=== PATIENT | female | born 1985 | race Caucasian/White ===

== ENCOUNTER 2025-03-27 14:47 | Inpatient (IN) | payer OTHER, SELFPAY ==
[2025-03-27] VITALS (9 sets, daily range): BP systolic 138–161; BP diastolic 92–100; PULSE 96–128; RESP 13–18; TEMP 36.7–38; O2SAT 95–98; BMI 22.0
--- NOTE | ~2025-03-27 | CT_ITS ---
CLINICAL HISTORY: n v d, ETOH, epigastric LUQ pain TTP CT abdomen and pelvis with contrast Comparison: None Findings: Minimal bilateral basilar dependent atelectasis. No consolidation or pleural effusion. Gallbladder is within normal limits. No biliary ductal dilatation. The liver is enlarged and demonstrates low parenchymal attenuation consistent with hepatomegaly. 8 mm hypodense lesion in the liver anteriorly possibly cyst but too small to be fully characterized. The spleen, pancreas, adrenal glands and kidneys are unremarkable. No ureteral stones no hydronephrosis. No bowel obstruction, pneumoperitoneum, or pneumatosis. Circumferential wall thickening of the cecum and part of the ascending colon. No free fluid. Normal appendix. Uterus deviated to the left with an IUD in the uterus. Adnexal regions unremarkable. Urinary bladder appears unremarkable. No aneurysm of the abdominal aorta. Small fat containing umbilical hernia. No acute fracture. IMPRESSION: 1. Circumferential wall thickening of cecum and part of ascending colon suggestive of colitis. This could be inflammatory or infectious in etiology. 2. Hepatomegaly and hepatic steatosis 3. Additional nonacute findings as described. This document has been electronically signed by: Marlene Mckeon MD on 03/27/2025 18:23:43
--- NOTE | 2025-03-27 14:48 | ECG_ITS ---
Test Reason : PALP Blood Pressure : */* mmHG Vent. Rate : 119 BPM Atrial Rate : 119 BPM P-R Int : 112 ms QRS Dur : 76 ms QT Int : 434 ms P-R-T Axes : * 70 76 degrees QTcB Int : 610 ms Sinus tachycardia Nonspecific ST and T wave abnormality Prolonged QT Abnormal ECG No previous ECGs available Referred By: Generic ED Physician Electronically Signed By: William Taylor
--- NOTE | 2025-03-27 14:54 | ED.GENADULT ---
HPI - General Adult General Chief complaint: Arrhythmia/Palpitations Stated complaint: chest palpitations Time Seen by Provider: 03/27/25 15:50 Source: patient Mode of arrival: ambulatory Limitations: no limitations History of Present Illness ED Provider: Lyn Mcconnell NP HPI narrative: Patient is a 40-year-old female presents emergency department for evaluation. She reports of the past 2 days she has been experiencing palpitations, generalized chest discomfort/pain, generalized weakness, intermittent dizziness, bilateral lower extremity pain described as cramping, diffuse lower back pain, decreased urinary output with odorous urine no hematuria or dysuria, epigastric/left upper quadrant abdominal pain, vomiting 5-6 episodes today of nonbloody bilious emesis multiple episodes of diarrhea described as loose watery stools. Admits to alcohol use disorder, typically consuming about 6-10 nips daily, states she has only had for nips today due to her symptoms. Denies known history of pancreatitis. Admits to symptoms of alcohol withdrawal but denies withdrawal seizure, states she has recently been trying to cut back on the amount of alcohol that she is consuming. States in September of 2024 she was seen at a [facility] diagnosed with colitis she had low potassium at that time, states she has been taking oral supplementation ?when I remember? not been taking it recently. Denies fevers, chills, known sick contacts, headache, vision changes, neck pain, neck stiffness, numbness or tingling of the extremities Related Data Allergies Allergy/AdvReac Type Severity Reaction Status Date / Time latex Allergy Rash Verified 03/27/25 14:54 Review of Systems Review of Systems: Yes all other systems are reviewed and are negative [facility] Past Medical History Attestation statement: The following information was validated with the patient. Source: old records reviewed Medical History (Updated 03/28/25 @ 03:46 by Amilcar Norton) Alcohol use disorder Colitis Social History Social History Alcohol intake: current Alcohol intake frequency: 0-2 drinks per day Alcohol type: hard liquor Smoked in Last 30 Days: Yes Use of substances other than those prescribed or required for medical reasons: No Advance Directives: No Advance Directives Information Provided: No Patient : No Physical Exam ED Vital Signs: Vital Signs - 24 hr 03/27/25 14:52 03/27/25 16:40 03/27/25 17:11 Temperature 98.0 F Pulse Rate 128 H 96 96 Respiratory Rate 16 18 18 Blood Pressure 138/93 H 145/99 H 149/100 H Pulse Oximetry 96 98 95 Oxygen Delivery Method Room Air Room Air Room Air 03/27/25 17:27 03/27/25 18:52 03/27/25 20:00 Temperature 100.4 F 99.6 F Pulse Rate 99 96 103 H Respiratory Rate 16 16 18 Blood Pressure 145/92 H 158/99 H 161/99 H Pulse Oximetry 95 98 97 Oxygen Delivery Method Room Air Room Air Room Air BMI result Body Mass Index 22.0 Appearance: Alert.?Oriented to person, place and time. No acute distress.?Normal affect. Eyes: Pupils equal, round and reactive to light.? ENT: Pharynx normal.?? Neck: Normal inspection.? Neck supple.?? CVS: Heart sounds normal. Tachycardic? Pulses normal.?? Respiratory: No respiratory distress.? Lung sounds clear to auscultation bilaterally?? Abdomen: Soft with epigastric and left upper quadrant tenderness upon palpation. No rigidity or guarding Normoactive bowel sounds. No pulsatile mass.?? Skin: Skin warm and dry.? Normal skin color.? Facial flushing Extremities: No lower extremity edema.? Neuro: Moves all extremities spontaneously. Sensation intact bilaterally. CN II-XII intact. No focal neuro deficits. Ambulates with normal steady gait. Course Course Course Narrative: 03/27/25 1455 BRENDAN Jack This is a Rapid Medical Examination (RME) performed by Adán Houston PA-C in triage. Full HPI, ROS, assessment and treatment plan per primary provider in the Main ED. Hx: 40 yo F here for eval of palpitations/ chest pain x2 days. assoc generalized weakness/ dizziness, b/l LE pain and low back pain. no cardiac hx. PE/vitals: well appearing Plan: labs, trop, ekg - will defer imaging to primary provider Reevaluation(s) Reevaluation #1: Patient signed out to Rose CARDONA, pending lipase, ethyl alcohol level, urinalysis, CT of the abdomen and pelvis. Anticipating admission for electrolyte derangement suspect at this time likely pancreatitis. Time: 17:56 Medications Administered Generic Name Dose Route Start Last Admin Trade Name Freq PRN Reason Stop Dose Admin Ceftriaxone Sodium 1 gm 03/28/25 01:00 03/28/25 02:08 Ceftriaxone Sodium 1 Gm Vial IVPUSH 1 gm Q24H LORA Administration Lactated Ringer's 1,000 mls @ 100 mls/hr 03/28/25 01:00 03/28/25 02:08 Lr IVCONT 03/28/25 10:59 100 mls/hr .Q10H LORA Administration Metronidazole 500 mg in 100 mls @ 100 mls/hr 03/28/25 01:00 03/28/25 03:12 Flagyl IV Infused Q8H LORA Infusion Discontinued Medications Generic Name Dose Route Start Last Admin Trade Name Freq PRN Reason Stop Dose Admin Potassium Chloride 10 meq in 100 mls @ 100 mls/hr 03/27/25 16:00 03/27/25 19:44 Potassium Chloride/H20 IV 03/27/25 19:59 10 mls/hr Q1H LORA Administration Magnesium Sulfate 2 gm in 50 mls @ 150 mls/hr 03/27/25 15:50 03/27/25 17:11 Magnesium Sulfate/H2o IV 03/27/25 16:09 Infused ONCE ONE Infusion Sodium Chloride 1,000 mls @ 999 mls/hr 03/27/25 16:00 03/27/25 18:29 Ns IV 03/27/25 17:00 Infused .Q1H1M LORA Infusion Iohexol 100 ml 03/27/25 17:18 03/27/25 17:19 Iohexol 350 Mg/Ml 100 Ml Infus..Btl IV 03/27/25 17:19 85 ml ONCE ONE Administration Metoclopramide HCl 10 mg 03/27/25 18:02 03/27/25 20:45 Metoclopramide Hcl 10 Mg/2 Ml Vial IVPUSH 03/27/25 18:03 Not Given ONCE ONE Phenobarbital Sodium 237 mg 03/27/25 20:45 03/27/25 20:50 Phenobarbital Sodium 130 Mg/Ml Im Once IM 03/27/25 20:46 237 mg ONCE ONE Administration Phenobarbital Sodium 178 mg 03/28/25 00:00 03/28/25 03:07 Phenobarbital Sodium 130 Mg/Ml Vial Im Q3hx2 IM 03/28/25 03:01 178 mg Q3H LORA Administration Potassium Chloride 40 meq 03/27/25 15:50 03/27/25 16:14 Potassium Chloride Packet 20 Meq Packet PO 03/27/25 15:51 40 meq ONCE ONE Administration Medical Decision Making Medical Decision Making [facility] Narrative: I assumed care patient at 15:52. Received call from lab regarding critical electrolyte abnormalities potassium of 2.4 and magnesium 0.9. Reviewed EKG reveals a sinus tachycardia ventricular rate of 119, QT/QTC prolongation 434/610 MS, slight ST-depression V3-V6. Patient is a 40-year-old female with reported past medical history of alcohol use disorder presenting for evaluation of multitude of symptoms as per HPI including palpitations weakness myalgias genitourinary symptoms as well as abdominal pain with nausea vomiting and diarrhea. Patient physical examination concerning for pancreatitis, gastroenteritis, suspect that her electrolyte derangements or secondary to gastrointestinal loss. CBC reveals mild leukocytosis of 11,300 with left shift, macrocytic anemia that does not meet transfusion criteria, no thrombocytopenia. No FELIPE. Elevated LFTs with T bili 1.9, ALC 2 5, ALT 41, lipase is pending. HCG is negative. Urinalysis is pending. She is currently pending CT of the abdomen and pelvis for further evaluation, will treat accordingly with a 1 L normal saline IV fluid, reglan IV for nausea, potassium chloride 10 mEq IV x4 for total of 40 mEq IV, potassium chloride 40 mEq p.o., magnesium sulfate 2 g IV. Differential Diagnosis Differential Diagnoses: The differential diagnosis associated with the presentation includes (See narrative above) Admission/Observation Consideration of admission/observation: Escalation of care including admission/observation considered Lab Data [facility] Lab Attestation statement: I reviewed the patient's lab results. (See narrative above and course narrative for further detail) 03/27/25 15:06 03/28/25 01:56 Labs: Lab Results 03/27/25 03/27/25 Range/Units 15:06 17:39 WBC 11.3 H (4.8-10.8) X10*3/uL RBC 2.99 L (4.20-5.50) X10*6/uL Hgb 11.9 L (12.0-16.0) g/dl Hct 32.6 L (37.0-47.0) % MCV 109.0 H (80.0-98.0) fL MCH 39.8 H (27.0-33.0) pg MCHC 36.5 H (31.0-35.0) g/dl RDW 16.1 H (11.0-16.0) % Plt Count 311 (160-400) X10*3/uL MPV 9.0 L (9.4-12.3) fL Immature Gran % (Auto) 0.5 H (0.0-0.4) % Neut % (Auto) 78.9 H (45-73) % Lymph % (Auto) 14.7 L (20-40) % [place] % (Auto) 5.1 (2-11) % Eos % (Auto) 0.0 (0-4) % Baso % (Auto) 0.8 (0-2) % Lymph # (Auto) 1.7 (1.2-4.9) X10*3/uL [place] # (Auto) 0.6 (0.1-1.2) X10*3/uL Eos # (Auto) 0.0 (0.0-0.4) X10*3/uL Baso # (Auto) 0.1 (0.0-0.2) X10*3/uL Abs Immat Gran (auto) 0.06 H (0.00-0.03) X10*3/uL Absolute Neuts (auto) 8.9 H (2.0-8.3) x10*3/uL Absolute Nucleated RBC 0.020 H (0.0-0.012) X10*3/uL Nucleated RBC % (auto) 0.2 (0.0-0.2) /100WBC Sodium 136 (135-145) mmol/L Potassium 2.4 L* (3.3-5.1) mmol/L Chloride 92 L (96-108) mmol/L Carbon Dioxide 28 (22-29) mmol/L Anion Gap 18 (12-20) BUN 4 L (9-16) mg/dL Creatinine 0.58 (0.5-1.4) mg/dL Estim Creat Clear Calc 120.7 Estimated GFR > 60 Random Glucose 145 H (60-115) mg/dL Calcium 7.8 L (8.4-10.2) mg/dL Magnesium 0.9 L* (1.6-2.6) mg/dL Total Bilirubin 1.9 H (0.0-1.0) mg/dL AST 95 H (5-31) U/L ALT 41 H (0-31) U/L Alkaline Phosphatase 103 (39-117) U/L Troponin I High Sens 12.9 (<3.5-17.0) ng/L Total Protein 6.2 L (6.5-8.0) g/dL Albumin 3.4 L (3.5-5.0) g/dL Lipase 17 (8-78) U/L Beta HCG, Quant < 2 mIU/mL Urine Color Yellow Urine Appearance Cloudy Urine pH 7.5 (5.0-9.0) Ur Specific [place] 1.015 (1.005-1.025) Urine Protein Negative (Neg-Trace) mg/dL Urine Glucose (UA) Negative (Negative) mg/dL Urine Ketones Negative (Negative) mg/dL Urine Blood Negative (Negative) Urine Nitrite Negative (Negative) Ur Leukocyte Esterase Small (1+) H (Negative) Urine RBC 0-2 (0-2) /HPF Urine WBC 11-20 H (0-5) /HPF Ur Squamous Epith Cells 11-20 (0-2) /HPF Urine Bacteria 4+ (None Seen) Hyaline Casts 0-2 (0-2) /LPF Ethyl Alcohol 54 mg/dL Influenza Type A (PCR) NEGATIVE (Negative) Influenza Type B (PCR) NEGATIVE (Negative) RSV RNA Qual (PCR) NEGATIVE (Negative) SARS-CoV-2 RNA (RT-PCR) NEGATIVE (Negative) Radiology Impression Discussion of test interpretation with radiology: I have reviewed the radiologist's reading. Independent Historian Clinical information obtained from an independent historian. History obtained from or confirmed by: Spouse Chronic Conditions Patient?s care impacted by: Other (See narrative above) Discharge Plan Discharge Clinical Impression: Alcohol use disorder, Hypokalemia, Hypomagnesemia Patient Disposition: Admitted As Inpatient
[2025-03-27 15:12] LABS: MANUAL DIFF FLAG NO
[2025-03-27 15:16] LABS: Basophils Absolute Auto 0.1 X10*3/uL (0.0-0.2); Basophils Percent Auto 0.8 % (0-2); Hematocrit 32.6 % (37.0-47.0); Hemoglobin 11.9 g/dl (12.0-16.0); Imm Gran Abs Auto 0.06 X10*3/uL (0.00-0.03); Imm Gran Pct Auto 0.5 % (0.0-0.4); Lymphocytes Absolute Auto 1.7 X10*3/uL (1.2-4.9); Lymphocytes Percent Auto 14.7 % (20-40); Mean Corpuscular HGB Conc 36.5 g/dl (31.0-35.0); Mean Corpuscular Hemoglobin 39.8 pg (27.0-33.0); Monocytes Absolute Auto 0.6 X10*3/uL (0.1-1.2); Monocytes Percent Auto 5.1 % (2-11); NRBC Pct Auto 0.2 /100WBC (0.0-0.2); Neutrophils Absolute Auto 8.9 x10*3/uL (2.0-8.3); Neutrophils Percent Auto 78.9 % (45-73); Platelet Count 311 X10*3/uL (160-400); Red Blood Count 2.99 X10*6/uL (4.20-5.50); Red Cell Distribution Width 16.1 % (11.0-16.0); White Blood Count 11.3 X10*3/uL (4.8-10.8)
[2025-03-27 15:48] LABS: Troponin-I High Sensitivity 12.9 ng/L (<3.5-17.0)
[2025-03-27 15:51] LABS: Alanine Aminotransferase 41 U/L (0-31); Albumin Level 3.4 g/dL (3.5-5.0); Anion Gap 18 (12-20); Aspartate Amino Transferase 95 U/L (5-31); Bilirubin Total 1.9 mg/dL (0.0-1.0); Blood Urea Nitrogen 4 mg/dL (9-16); Calcium 7.8 mg/dL (8.4-10.2); Carbon Dioxide 28 mmol/L (22-29); Chloride 92 mmol/L (96-108); Creatinine Clr Calc Pharmacy 120.7; Estimated Glomerular Filt Rate > 60; Glucose Random 145 mg/dL (60-115); HCG Quantitative < 2 mIU/mL; Magnesium 0.9 mg/dL (1.6-2.6); Potassium 2.4 mmol/L (3.3-5.1); Sodium 136 mmol/L (135-145); Total Protein 6.2 g/dL (6.5-8.0)
[2025-03-27] MEDS: Potassium Chloride/H20 10 MEQ/100 ML PIGGYBACK 100 MEQ IV (16:14)
[2025-03-27] MEDS: Potassium Chloride Packet 20 MEQ PACKET 40 MEQ PO (16:14)
[2025-03-27] MEDS: 0.9 % Sodium Chloride 1,000 ML 999 ML IV (16:14)
[2025-03-27 16:20] LABS: Influenza A PCR NEGATIVE (Negative); Influenza B PCR NEGATIVE (Negative); Resp Syncy Virus RNA Qual PCR NEGATIVE (Negative); SARS COV2 PCR INHOUSE NEGATIVE (Negative)
[2025-03-27] MEDS: Magnesium Sulfate/H2O 2 GM/50 ML PIGGYBACK IV (16:22)
[2025-03-27 17:07] LABS: Alkaline Phosphatase 103 U/L (39-117)
[2025-03-27] MEDS: iohexoL 350 MG/ML 100 ML INFUS..BTL IV (17:19)
[2025-03-27] MEDS: Potassium Chloride/H20 10 MEQ/100 ML PIGGYBACK IV ×3 (17:35→19:44)
[2025-03-27 17:46] LABS: Appearance Urine Cloudy; Color Urine Yellow; Glucose Urine UA Negative (Negative); Leukocyte Esterase Urine Small (1+) (Negative); Nitrite Urine Negative (Negative); PH 7.5 (5.0-9.0); Specific Gravity - Urine 1.015 (1.005-1.025); UMIC TRIGGER UACC YES; Urine Blood Negative (Negative); Urine Ketones Negative (Negative); Urine Protein Negative (Neg-Trace)
[2025-03-27 18:06] LABS: Bacteria Urine 4+ (None Seen); Hyaline Casts Urine 0-2 /LPF (0-2); RBC Urine 0-2 /HPF (0-2); UACC Culture Trigger YES
--- NOTE | 2025-03-27 18:38 | ECG_ITS ---
Test Reason : CHECK QTC Blood Pressure : */* mmHG Vent. Rate : 96 BPM Atrial Rate : 96 BPM P-R Int : 152 ms QRS Dur : 74 ms QT Int : 404 ms P-R-T Axes : 56 54 48 degrees QTcB Int : 510 ms Normal sinus rhythm Nonspecific T wave abnormality Abnormal ECG When compared with ECG of 27-Mar-2025 14:47, No significant change was found Referred By: Amilcar Norton Electronically Signed By: William Taylor
[2025-03-27 18:42] LABS: Ethanol 54 mg/dL; Lipase 17 U/L (8-78)
--- NOTE | 2025-03-27 19:18 | PC.NURSE ---
Informed BRENDAN Durbin of pt's painand requesting medication.
[2025-03-27] MEDS: PHENobarbitaL sodium 130 MG/ML IM ONCE 237 MG IM (20:50)
--- NOTE | 2025-03-27 23:25 | PM.IMHP ---
History of Present Illness Date of Service: 03/27/25 Attending physician on admission: Lisset Tolentino Chief Complaint: vomiting, diarrhea Pt is a 40 yo female with a pmhx significant for etoh use disorder and colitis, who presetned to the ED due to nausea, vomiting, diarrhea, and chest discomfort x2 days. She reports that she has been having severe nausea and vomiting and has not been able to eat for days. She has been having nonbloody diarrhea and denies hematemesis, and states this simillar to a previous episode of colitis. she has not seen a alcoholism worker for this, but no fhx of IBD. she is having mild LUQ and epigastic pain, most of her pain is in her low back. she does complain of decreaed urianry output but denies dysuria or urgency. she used to drink 12+nips/day, and has cut back to about 8/day, and reports over the past few days she has not been drinking much at all due to her sx. her sx are not caused by her cutting back on etoh. currently her nausea is controlled. Review of Systems Constitutional: Constitutional: Denies body ache(s), Denies chills, Reports fatigue, Denies fever(s) and Denies headache(s) Eyes: Eyes: Denies change in vision and Denies photophobia ENT: Denies headache(s), Denies nasal congestion, Denies nasal discharge and Denies sore throat Cardiovascular: Cardiovascular: Reports chest pain (discomfort, resolved), Denies syncope, Reports rapid heart rate, Denies leg edema and Denies dyspnea Respiratory: Respiratory: Denies cough, Denies dyspnea and Denies wheezing Gastrointestinal: Gastrointestinal: Reports as per HPI Genitourinary: Genitourinary: Denies difficulty voiding, Denies dysuria and Denies urinary urgency Musculoskeletal: Musculoskeletal: Reports back pain and Reports muscle cramps Integumentary/Breasts: Skin/Breast: Denies rash Neurologic: Denies confusion, Denies syncope and Denies headache(s) Psychiatric: Psychiatric: Denies confusion Endocrine: Endocrine: Reports fatigue Hematologic/Lymphatic: Hematologic/Lymphatic: Denies easy bleeding and Denies easy bruising Allergic/Immunologic: Allergic/Immunologic: Denies wheezing [facility] Medical History (Updated 03/28/25 @ 01:10 by Magaly Garza PA-C) Alcohol use disorder Colitis Functional capacity: independent ambulation Social History Alcohol intake: current Alcohol intake frequency: 0-2 drinks per day Alcohol type: hard liquor Smoked in Last 30 Days: Yes Use of substances other than those prescribed or required for medical reasons: No Advance Directives: No Advance Directives Information Provided: No Patient : No Narrative: smokes 1/2 ppd, drinks up to 8 nips/day. no drug use. Meds Allergies Allergy/AdvReac Type Severity Reaction Status Date / Time latex Allergy Rash Verified 03/27/25 14:54 Active Medications: Current Medications Pharmacy Consult (Consult Rx Etoh Phenob Im/Po) 1 each MISCELLANE ONCE PRN; Protocol PRN Reason: Consult order Phenobarbital (Phenobarbital 15 Mg Tablet) 45 mg PO BID [facility] Stop: 03/29/25 21:01 Phenobarbital (Phenobarbital 30 Mg Tablet) 30 mg PO BID LORA Stop: 03/31/25 21:01 Phenobarbital (Phenobarbital 15 Mg Tablet) 15 mg PO DAILY LORA Stop: 04/02/25 09:01 Phenobarbital Sodium (Phenobarbital Sodium 130 Mg/Ml Vial Im Q3hx2) 178 mg IM Q3H LORA Stop: 03/28/25 03:01 Physical Exam Vital Signs and Narrative: Vital Signs: Last Vital Signs Temp 99.3 F 03/27/25 22:30 Pulse 103 H 03/27/25 22:30 Resp 13 03/27/25 22:30 BP 149/98 H 03/27/25 22:30 Pulse Ox 97 03/27/25 22:30 O2 Del Method Room Air 03/27/25 22:30 BMI result Body Mass Index 22.0 General: AOx3, no acute distress Resp: CTA bilaterally CVS: S1, S2, RRR GI: +BS, mild tenderness LUQ, no distention Skin: Warm, dry Neuro: Cranial nerves II-XII grossly intact bilaterally. Motor grossly intact bilaterally Extremities: No LE edema Psych: Appropriate affect Const: General: No confusion Orientation/consciousness: No confusion Eyes: Direct Ophthalmoscopy: No photophobia Neuro: General: No confusion Results Labs 03/27/25 15:06 03/27/25 15:06 Labs: Laboratory Results - last 24 hr 03/27/25 03/27/25 15:06 17:39 MCV 109.0 H MCH 39.8 H MCHC 36.5 H RDW 16.1 H Plt Count 311 MPV 9.0 L Immature Gran % (Auto) 0.5 H Neut % (Auto) 78.9 H Lymph % (Auto) 14.7 L [place] % (Auto) 5.1 Eos % (Auto) 0.0 Baso % (Auto) 0.8 Lymph # (Auto) 1.7 [place] # (Auto) 0.6 Eos # (Auto) 0.0 Baso # (Auto) 0.1 Abs Immat Gran (auto) 0.06 H Absolute Neuts (auto) 8.9 H Absolute Nucleated RBC 0.020 H Nucleated RBC % (auto) 0.2 Anion Gap 18 Estim Creat Clear Calc 120.7 Estimated GFR > 60 Random Glucose 145 H Calcium 7.8 L Magnesium 0.9 L* Total Bilirubin 1.9 H AST 95 H ALT 41 H Alkaline Phosphatase 103 Total Protein 6.2 L Albumin 3.4 L Lipase 17 Beta HCG, Quant < 2 Urine Color Yellow Urine Appearance Cloudy Urine pH 7.5 Ur Specific [place] 1.015 Urine Protein Negative Urine Glucose (UA) Negative Urine Ketones Negative Urine Blood Negative Urine Nitrite Negative Ur Leukocyte Esterase Small (1+) H Urine RBC 0-2 Urine WBC 11-20 H Ur Squamous Epith Cells 11-20 Urine Bacteria 4+ Hyaline Casts 0-2 Ethyl Alcohol 54 Influenza Type A (PCR) NEGATIVE Influenza Type B (PCR) NEGATIVE RSV RNA Qual (PCR) NEGATIVE SARS-CoV-2 RNA (RT-PCR) NEGATIVE Assessment and Plan (1) Colitis: Status: Acute (2) Nausea and vomiting: Status: Acute (3) Hypokalemia: Status: Acute (4) Hypomagnesemia: Status: Acute (5) Alcohol use disorder: Status: Acute (6) Prolonged QT interval: Status: Acute (7) Acute UTI: Status: Acute Plan Pt is a 40 yo female with a pmhx significant for etoh use disorder and colitis, who presetned to the ED due to nausea, vomiting, diarrhea, and chest discomfort x2 days. colitis, nausea and vomiting - WBC 11.2, tachycardia due to dehydration, no sepsis - A/P CT with circumferential wall thickening of cecum and part of ascending colon suggestive of colitis. This could be inflammatory or infectious in etiology. - ceftriaxone and flagyl - clear liquid diet - GI consult due to recurrent colitis - GI panel - monitor CBC and BMP acute hypokalemia and hypomagnesemia - secondary to vomiting and diarrhea - given 40 meq IV and PO K - given 2g IV mag - check BMP and mag now - follow BMP and mag daily prolonged QT - due to lyte abnormalities - repeat EKG once lytes corrected - avoid QT prolonging agents for now UTI - UA with 11-20 WBC, culture pending - c/o decreased urine out put - ceftriaxone as above alcohol use disorder - etoh level 54 - monitor CIWA - phenobarb protocol - folic acid, MVI and thiamine daily - addicion med consult - pantoprazole for gastritis full code VTE prophy: pneumoboots pending GI consult Pt with colitis and acute hypokalemia and hypomagnesemia, requiring admission for at least 2 midnights stay for IV abx, fluids, and monitoring. Quality Stroke Does the patient have a stroke diagnosis?: No VTE Prior VTE?: No VTE Risk Level:: Medical - moderate - high VTE Device Contraindication: N/A - Device Ordered VTE Drug Contraindication: Treatment Not Indicated
[2025-03-28] VITALS (10 sets, daily range): BP systolic 112–138; BP diastolic 61–95; PULSE 83–106; RESP 12–20; TEMP 36.2–38.1; O2SAT 94–98; BMI 22.5
[2025-03-28] MEDS: PHENobarbitaL sodium 130 MG/ML VIAL IM Q3Hx2 178 MG IM ×2 (00:12→03:07)
--- NOTE | 2025-03-28 00:16 | PC.NURSE ---
this rn assumed care of pt @ 2300 pt medicated according to walter ware 2
[2025-03-28] MEDS: cefTRIAXone sodium 1 GM VIAL IVPUSH (02:08)
[2025-03-28] MEDS: Lactated Ringers 1,000 ML 100 ML IVCONT (02:08)
[2025-03-28] MEDS: metroNIDAZOLE/NS 500 MG/100 ML PIGGYBACK 100 MG IV ×3 (02:09→16:35)
[2025-03-28 02:28] LABS: Lactic Acid 1.3 mmol/L (0.5-2.0)
--- NOTE | 2025-03-28 03:11 | PC.NURSE ---
Took over from JO Allen, pt a&o, no sign of distress, medicated per mar.
[2025-03-28 03:15] LABS: Anion Gap 13 (12-20); Blood Urea Nitrogen 4 mg/dL (9-16); Calcium 7.2 mg/dL (8.4-10.2); Carbon Dioxide 31 mmol/L (22-29); Chloride 97 mmol/L (96-108); Creatinine Clr Calc Pharmacy 142.8; Estimated Glomerular Filt Rate > 60; Glucose Random 99 mg/dL (60-115); Magnesium 1.5 mg/dL (1.6-2.6); Potassium 2.2 mmol/L (3.3-5.1); Sodium 139 mmol/L (135-145)
[2025-03-28] MEDS: Potassium Chloride/H20 10 MEQ/100 ML PIGGYBACK 100 MEQ IV ×8 (03:46→13:54)
[2025-03-28] MEDS: Magnesium Sulfate/H2O 2 GM/50 ML PIGGYBACK IV (03:46)
[2025-03-28] MEDS: Potassium Chloride ER 20 MEQ TAB.ER.PRT 40 MEQ PO ×3 (03:47→08:41)
[2025-03-28] MEDS: Acetaminophen 325 MG TABLET 975 MG PO ×2 (04:04→17:37)
--- NOTE | 2025-03-28 04:06 | PC.NURSE ---
Medicated per mar, pt resting in bed no sign of distress at this time.
[2025-03-28] MEDS: Potassium Chloride Packet 20 MEQ PACKET 40 MEQ PO (04:09)
[2025-03-28 05:19] LABS: MANUAL DIFF FLAG NO
[2025-03-28 05:20] LABS: Basophils Absolute Auto 0.1 X10*3/uL (0.0-0.2); Basophils Percent Auto 0.8 % (0-2); Eosinophils Percent Auto 0.3 % (0-4); Hematocrit 27.4 % (37.0-47.0); Hemoglobin 10.1 g/dl (12.0-16.0); Imm Gran Abs Auto 0.02 X10*3/uL (0.00-0.03); Imm Gran Pct Auto 0.3 % (0.0-0.4); Lymphocytes Absolute Auto 1.7 X10*3/uL (1.2-4.9); Lymphocytes Percent Auto 24.3 % (20-40); Mean Corpuscular HGB Conc 36.9 g/dl (31.0-35.0); Mean Corpuscular Hemoglobin 40.9 pg (27.0-33.0); Mean Corpuscular Volume 110.9 fL (80.0-98.0); Mean Platelet Volume 9.1 fL (9.4-12.3); Monocytes Absolute Auto 0.4 X10*3/uL (0.1-1.2); Monocytes Percent Auto 5.6 % (2-11); Neutrophils Absolute Auto 4.9 x10*3/uL (2.0-8.3); Neutrophils Percent Auto 68.7 % (45-73); Platelet Count 261 X10*3/uL (160-400); Red Blood Count 2.47 X10*6/uL (4.20-5.50); Red Cell Distribution Width 15.9 % (11.0-16.0); White Blood Count 7.1 X10*3/uL (4.8-10.8)
[2025-03-28 05:39] LABS: Anion Gap 13 (12-20); Blood Urea Nitrogen 3 mg/dL (9-16); Carbon Dioxide 30 mmol/L (22-29); Chloride 98 mmol/L (96-108); Creatinine Clr Calc Pharmacy 148.9; Estimated Glomerular Filt Rate > 60; Glucose Random 98 mg/dL (60-115); Magnesium 2.6 mg/dL (1.6-2.6); Potassium 2.9 mmol/L (3.3-5.1); Sodium 138 mmol/L (135-145)
--- NOTE | 2025-03-28 05:42 | PC.NURSE ---
critital lab report to Madeline Burnette 2.9
[2025-03-28] MEDS: Pantoprazole Sodium 40 MG/10 ML VIAL IVPUSH (06:30)
--- NOTE | 2025-03-28 06:35 | PC.NURSE ---
pt medicated per jan. resting in bed with no sign of distress.
--- NOTE | 2025-03-28 07:34 | PC.NURSE ---
This Rn assumed care of patient @ 0700. Patient medicated per JAN. Patient started on 4th bag of K, effectiveness pending. Patient continues to run LR.
--- NOTE | 2025-03-28 08:11 | PHA.MEDREC ---
Addendum entered by David Santiago 03/28/25 08:24: reviewed Original Note: Pharmacy Consult ? Medication Reconciliation Pharmacy has completed the medication reconciliation. Patient confirmed she is only taking a Women's One a Day Multivitamin once a day.
[2025-03-28] MEDS: Multivitamin TABLET 1 TAB PO (08:41)
[2025-03-28] MEDS: Thiamine HCL 100 MG TABLET PO (08:41)
[2025-03-28] MEDS: PHENobarbitaL 15 MG TABLET 45 MG PO ×2 (08:41→21:14)
[2025-03-28] MEDS: Folic Acid 1 MG TABLET PO (08:41)
--- NOTE | 2025-03-28 09:37 | CONS_ITS ---
DATE OF SERVICE: 03/28/2025 REFERRING PHYSICIAN: BRENDAN Leung REASON FOR CONSULTATION: Colitis. HISTORY OF PRESENT ILLNESS: The patient is a pleasant 40-year-old woman, who was admitted to the hospital after presenting to the emergency department with complaints of nausea, vomiting, and diarrhea for 3 days prior to admission. She reports a history of heavy alcohol use, although she has been trying to cut down. She estimates she is drinking about 8 drinks on a daily basis and her last drink was the day of admission. Blood alcohol level obtained in the emergency department was elevated at 54 yesterday afternoon. Because of her symptoms, she underwent evaluation with CT scanning, which is reviewed. This is interpreted as showing circumferential wall thickening of the cecum and ascending colon, suggestive of colitis. Hepatomegaly and hepatic steatosis were . She reports a history of being diagnosed with colitis at a previous emergency visit in earlier in this year with a finding of colitis on CT scanning as well. She attempted to contact her primary care provider at [facility] for Gastroenterology referral, but was not able to. She denies any diarrhea since Friday. She last vomited yesterday and has been able to tolerate clear liquids today. She has been noted to be deficient in magnesium and potassium, which are being repleted. She has never undergone colonoscopy. She has no family history of colitis. She denies recent travel, suspect food ingestions, or ill contacts. She believes she had a fever at home. Stool specimens have been ordered and are pending. PAST MEDICAL HISTORY: 1. Alcohol abuse. 2. Colitis as above. CURRENT MEDICATIONS: Her current medication list is reviewed in the chart. She was taking an [id number] potassium supplement at home because she has had hypokalemia in the past. ALLERGIES: THERE ARE REPORTED ALLERGIES TO LATEX. FAMILY HISTORY: Noncontributory. SOCIAL HISTORY: There is no current intravenous drug usage. She does use half a pack of tobacco a day and alcohol use is as above. REVIEW OF SYSTEMS: SKIN: No pruritus. HEENT: Negative. CARDIOPULMONARY: No shortness of breath or chest pain. GASTROINTESTINAL: As above. GENITOURINARY: Negative. NEUROPSYCHIATRIC: Negative. PHYSICAL EXAMINATION: GENERAL: Shows a pleasant female, lying comfortably in bed. VITAL SIGNS: Reviewed in electronic medical record and are stable. SKIN: Anicteric. HEENT: Shows no scleral icterus. NECK: Without lymphadenopathy or thyromegaly. LUNGS: Clear. HEART: Shows regular rate and rhythm. S1, S2. No murmur. ABDOMEN: Soft without focal masses or tenderness. Bowel sounds are present. No organomegaly is noted. EXTREMITIES: Without edema. LABORATORY DATA AND IMAGING STUDIES: Reviewed. IMPRESSION: 1. Alcohol abuse. 2. Colitis. I discussed with her the need to defer alcohol use because of her nausea, vomiting, and diarrhea. She may have a component of alcoholic gastritis and I would agree with continuing a proton pump inhibitor orally after discharge. Outpatient endoscopy can be arranged for followup evaluation. The colitis seen on her CT imaging may represent a recent viral gastroenteritis and I would agree with treating her supportively with replacement of electrolytes and obtaining stool studies. Once her electrolytes are corrected and stool studies were negative, she will be discharged for outpatient colonoscopy at the same time as endoscopy. This was discussed with her. She understands risks and benefits of both procedures and agrees to proceed. Thanks for asking me to see her. I will follow her in the hospital with you. MD SHANNON Ross/CARLOS / [phone]
--- NOTE | 2025-03-28 09:40 | PC.NURSE ---
IV access' noted be in bilateral ACs. IVF/K+ infusions continuously occluding. new 20gIV placed in the right wrist - IVF/K+ continues to infuse w/o difficulty. plan of care ongoing.
--- NOTE | 2025-03-28 10:35 | PC.NURSE ---
patient ambulated to the restroom independently w.o any use of assistive devices - strong/steady gait noted. pt assisted back into bed. IVF/medication continues to infuse at this time. plan of care ongoing. call holman placed within reach.
--- NOTE | 2025-03-28 13:43 | MHC.CM.PN ---
pt lives with her father and children has dcf involvement requested that letter be sent to [facility] verifying that she is here and will not be able to be in court tomorrow when the restraining order will be renewed
--- NOTE | 2025-03-28 14:10 | HO.PM.IMPN ---
Subjective Subjective Date of Service: 03/28/25 Interval History: colitis Review of Systems Has some nausea, abdominal pain somewhat improving No vomiting Review of Systems: Yes all other systems are reviewed and are negative Physical Exam Vital Signs: Vital Signs: Last Vital Signs Temp 99.2 F 03/28/25 13:22 Pulse 102 H 03/28/25 13:22 Resp 18 03/28/25 13:22 BP 135/76 03/28/25 13:22 Pulse Ox 97 03/28/25 13:22 O2 Del Method Room Air 03/28/25 13:22 BMI result Body Mass Index 22.0 Appearance: Alert.? Oriented X3.? cvs: rrr, [id number] . res: clear to auscultation ,no rhonchii or wheezing abd: no rebound or guarding ,nt, bs present. ext pulses present , no cyanosis . neuro: axo3 , nonfocal. Objective Data Active Medications Acetaminophen (Acetaminophen 325 Mg Tablet) 975 mg PO Q6H PRN PRN Reason: Pain, Mild 1-3,fever,headache Last Admin: 03/28/25 04:04 Dose: 975 mg Documented By: EUFEMIA Calcium Carbonate (Calcium Carbonate 750 Mg Tab.Chew) 750 mg PO Q4H PRN PRN Reason: Heartburn Ceftriaxone Sodium (Ceftriaxone Sodium 1 Gm Vial) 1 gm IVPUSH Q24H [facility] Last Admin: 03/28/25 02:08 Dose: 1 gm Documented By: EMERSON Folic Acid (Folic Acid 1 Mg Tablet) 1 mg PO DAILY [facility] Stop: 03/31/25 08:59 Last Admin: 03/28/25 08:41 Dose: 1 mg Documented By: BAMBI Metronidazole (Flagyl) 500 mg in 100 mls @ 100 mls/hr IV Q8H [facility] Last Infusion: 03/28/25 09:53 Dose: Infused Documented By: BAMBI Magnesium Hydroxide (Milk Of Magnesia 30 Ml Oral.Susp) 30 ml PO DAILY PRN PRN Reason: Constipation Melatonin (Melatonin 3 Mg Tablet) 6 mg PO BEDTIME PRN PRN Reason: Insomnia Morphine Sulfate (Morphine Sulfate 2 Mg/Ml Cartridge) 2 mg IVPUSH Q4H PRN; Protocol PRN Reason: Pain, Severe (Pain Scale 7-10) Multivitamins/Vitamin C (Multivitamin Tablet) 1 tab PO DAILY [facility] Stop: 03/31/25 08:59 Last Admin: 03/28/25 08:41 Dose: 1 tab Documented By: BAMBI Multivitamins/Vitamin C (Multivitamin Tablet) 1 tab PO DAILY [facility] Oxycodone HCl (Oxycodone Hcl Immed Release 5 Mg Tablet) 5 mg PO Q6H PRN PRN Reason: Pain, Moderate(Pain Scale 4-6) Pantoprazole Sodium (Pantoprazole Sodium 40 Mg/10 Ml Vial) 40 mg IVPUSH DAILY@0630 [facility] Last Admin: 03/28/25 06:30 Dose: 40 mg Documented By: EUFEMIA Pharmacy Consult (Consult Rx Etoh Phenob Im/Po) 1 each MISCELLANE ONCE PRN; Protocol PRN Reason: Consult order Phenobarbital (Phenobarbital 15 Mg Tablet) 45 mg PO BID [facility] Stop: 03/29/25 21:01 Last Admin: 03/28/25 08:41 Dose: 45 mg Documented By: BAMBI Phenobarbital (Phenobarbital 30 Mg Tablet) 30 mg PO BID [facility] Stop: 03/31/25 21:01 Phenobarbital (Phenobarbital 15 Mg Tablet) 15 mg PO DAILY [facility] Stop: 04/02/25 09:01 Sodium Chloride (0.9 % Sodium Chloride Flush 3 Ml Syringe) 3 ml IVFLUSH QSHIFT [facility] Last Admin: 03/28/25 07:40 Dose: Not Given Documented By: OSMEL Non-Admin Reason: IV Running Thiamine HCl (Thiamine Hcl 100 Mg Tablet) 100 mg PO DAILY [facility] Stop: 03/31/25 08:59 Last Admin: 03/28/25 08:41 Dose: 100 mg Documented By: BAMBI Labs 03/28/25 04:43 03/28/25 04:43 Labs: Laboratory Results - last 24 hr 03/27/25 03/27/25 03/28/25 15:06 17:39 01:56 MCV 109.0 H MCH 39.8 H MCHC 36.5 H RDW 16.1 H Plt Count 311 MPV 9.0 L Immature Gran % (Auto) 0.5 H Neut % (Auto) 78.9 H Lymph % (Auto) 14.7 L Frio % (Auto) 5.1 Eos % (Auto) 0.0 Baso % (Auto) 0.8 Lymph # (Auto) 1.7 Frio # (Auto) 0.6 Eos # (Auto) 0.0 Baso # (Auto) 0.1 Abs Immat Gran (auto) 0.06 H Absolute Neuts (auto) 8.9 H Absolute Nucleated RBC 0.020 H Nucleated RBC % (auto) 0.2 Anion Gap 18 13 Estim Creat Clear Calc 120.7 142.8 Estimated GFR > 60 > 60 Random Glucose 145 H 99 Lactic Acid 1.3 Calcium 7.8 L 7.2 L D Magnesium 0.9 L* 1.5 L Total Bilirubin 1.9 H AST 95 H ALT 41 H Alkaline Phosphatase 103 Total Protein 6.2 L Albumin 3.4 L Lipase 17 Beta HCG, Quant < 2 Urine Color Yellow Urine Appearance Cloudy Urine pH 7.5 Ur Specific [place] 1.015 Urine Protein Negative Urine Glucose (UA) Negative Urine Ketones Negative Urine Blood Negative Urine Nitrite Negative Ur Leukocyte Esterase Small (1+) H Urine RBC 0-2 Urine WBC 11-20 H Ur Squamous Epith Cells 11-20 Urine Bacteria 4+ Hyaline Casts 0-2 Ethyl Alcohol 54 Influenza Type A (PCR) NEGATIVE Influenza Type B (PCR) NEGATIVE RSV RNA Qual (PCR) NEGATIVE SARS-CoV-2 RNA (RT-PCR) NEGATIVE 03/28/25 04:43 MCV 110.9 H MCH 40.9 H MCHC 36.9 H RDW 15.9 Plt Count 261 MPV 9.1 L Immature Gran % (Auto) 0.3 Neut % (Auto) 68.7 Lymph % (Auto) 24.3 Frio % (Auto) 5.6 Eos % (Auto) 0.3 Baso % (Auto) 0.8 Lymph # (Auto) 1.7 Frio # (Auto) 0.4 Eos # (Auto) 0.0 Baso # (Auto) 0.1 Abs Immat Gran (auto) 0.02 Absolute Neuts (auto) 4.9 Absolute Nucleated RBC 0.000 Nucleated RBC % (auto) 0.0 Anion Gap 13 Estim Creat Clear Calc 148.9 Estimated GFR > 60 Random Glucose 98 Lactic Acid Calcium 7.0 L Magnesium 2.6 Total Bilirubin AST ALT Alkaline Phosphatase Total Protein Albumin Lipase Beta HCG, Quant Urine Color Urine Appearance Urine pH Ur Specific [place] Urine Protein Urine Glucose (UA) Urine Ketones Urine Blood Urine Nitrite Ur Leukocyte Esterase Urine RBC Urine WBC Ur Squamous Epith Cells Urine Bacteria Hyaline Casts Ethyl Alcohol Influenza Type A (PCR) Influenza Type B (PCR) RSV RNA Qual (PCR) SARS-CoV-2 RNA (RT-PCR) Microbiology Microbiology Results: Microbiology 03/27/25 17:39 Urine Culture - Preliminary Urine clean catch - Clean Catch Midstream Culture in progress. Assessment and Plan (1) Acute UTI: Status: Acute (2) Prolonged QT interval: Status: Acute Plan 40 yo female with a pmhx significant for etoh use disorder and colitis, who presetned to the ED due to nausea, vomiting, diarrhea, and chest discomfort x2 days. colitis, nausea and vomiting Leukocytosis improved. Tachycardia also improving CT with circumferential wall thickening of cecum and part of ascending colon suggestive of colitis. This could be inflammatory or infectious in etiology. Seen by GI: Continue IV antibiotics, obtain GI studies, replete electrolytes, colonoscopy/endoscopy outpatient GI also recommended to add PPI for gastritis. acute hypokalemia and hypomagnesemia Given IV and p.o. replacements, potassium is still borderline 2.9 range Added extra p.o. replacement of potassium Closely monitor electrolytes, goal: keep potassium around 4, magnesium around 2. prolonged QT- due to lyte abnormalities repeat EKG once lytes corrected. avoid QT prolonging agents for now UTI - UA with 11-20 WBC, culture pending - c/o decreased urine out put on ceftriaxone as above alcohol use disorder - etoh level 54 - monitor CIWA - phenobarb protocol - folic acid, MVI and thiamine daily - addicion med consult - pantoprazole for gastritis full code VTE prophy: pneumoboots pending GI consult Pt with colitis and acute hypokalemia and hypomagnesemia, requiring stay for at least 2 midnights stay for IV abx, fluids, and mo Quality Stroke Does the patient have a stroke diagnosis?: No VTE Prior VTE?: No VTE Risk Level:: Medical - moderate - high VTE Device Contraindication: N/A - Device Ordered VTE Drug Contraindication: Treatment Not Indicated
[2025-03-28] MEDS: 0.9 % Sodium Chloride Flush 3 ML SYRINGE IVFLUSH (15:13)
[2025-03-28 15:39] LABS: Potassium 4.3 mmol/L (3.3-5.1)
[2025-03-28] MEDS: PHENobarbitaL 30 MG TABLET 60 MG PO (15:53)
[2025-03-28] MEDS: Nicotine 21 MG PATCH.TD24 TRANSDERMA (18:41)
[2025-03-29] MEDS: cefTRIAXone sodium 1 GM VIAL IVPUSH (01:12)
[2025-03-29] MEDS: metroNIDAZOLE/NS 500 MG/100 ML PIGGYBACK 100 MG IV ×3 (01:17→16:29)
[2025-03-29] MEDS: 0.9 % Sodium Chloride Flush 3 ML SYRINGE IVFLUSH ×3 (01:20→13:58)
[2025-03-29 03:17] VITALS: BP 141/94; PULSE 97; RESP 20; TEMP 37.4; O2SAT 97
[2025-03-29] MEDS: Pantoprazole Sodium 40 MG/10 ML VIAL IVPUSH (06:07)
[2025-03-29 06:42] LABS: MANUAL DIFF FLAG NO
[2025-03-29 06:51] LABS: Basophils Absolute Auto 0.1 X10*3/uL (0.0-0.2); Basophils Percent Auto 1.1 % (0-2); Eosinophils Absolute Auto 0.1 X10*3/uL (0.0-0.4); Eosinophils Percent Auto 1.1 % (0-4); Hematocrit 27.6 % (37.0-47.0); Hemoglobin 9.9 g/dl (12.0-16.0); Imm Gran Abs Auto 0.04 X10*3/uL (0.00-0.03); Imm Gran Pct Auto 0.6 % (0.0-0.4); Lymphocytes Absolute Auto 1.5 X10*3/uL (1.2-4.9); Lymphocytes Percent Auto 21.6 % (20-40); Mean Corpuscular HGB Conc 35.9 g/dl (31.0-35.0); Mean Corpuscular Hemoglobin 39.9 pg (27.0-33.0); Mean Platelet Volume 9.2 fL (9.4-12.3); Monocytes Absolute Auto 0.5 X10*3/uL (0.1-1.2); Monocytes Percent Auto 7.3 % (2-11); Neutrophils Absolute Auto 4.8 x10*3/uL (2.0-8.3); Neutrophils Percent Auto 68.3 % (45-73); Platelet Count 256 X10*3/uL (160-400); Red Blood Count 2.48 X10*6/uL (4.20-5.50); Red Cell Distribution Width 14.6 % (11.0-16.0)
[2025-03-29 06:52] LABS: Mean Corpuscular Volume 111.3 fL (80.0-98.0)
[2025-03-29 07:02] LABS: Blood Urea Nitrogen < 3 mg/dL (9-16); Calcium 7.4 mg/dL (8.4-10.2); Creatinine Clr Calc Pharmacy 148.9; Estimated Glomerular Filt Rate > 60; Glucose Random 88 mg/dL (60-115); Magnesium 1.7 mg/dL (1.6-2.6)
[2025-03-29 07:27] LABS: Anion Gap 10 (12-20); Carbon Dioxide 26 mmol/L (22-29); Chloride 100 mmol/L (96-108); Potassium 2.9 mmol/L (3.3-5.1); Sodium 133 mmol/L (135-145)
[2025-03-29 07:36] VITALS: BP 137/93; PULSE 95; RESP 16; TEMP 37.7; O2SAT 95
[2025-03-29] MEDS: Multivitamin TABLET 1 TAB PO (07:45)
[2025-03-29] MEDS: Folic Acid 1 MG TABLET PO (07:45)
[2025-03-29] MEDS: PHENobarbitaL 15 MG TABLET 45 MG PO ×2 (07:45→20:46)
[2025-03-29] MEDS: oxyCODONE HCl Immed Release 5 MG TABLET PO (07:45)
[2025-03-29] MEDS: Thiamine HCL 100 MG TABLET PO (07:45)
[2025-03-29] MEDS: Nicotine 21 MG PATCH.TD24 TRANSDERMA (07:46)
[2025-03-29 09:07] LABS: Adenovirus F 40/41 Not Detected (Not Detect.); Astrovirus Not Detected (Not Detect.); Campylobacter Not Detected (Not Detect.); Cryptosporidium Not Detected (Not Detect.); Cyclospora cayetanensis Not Detected (Not Detect.); E. coli EAEC Not Detected (Not Detect.); E. coli EPEC Not Detected (Not Detect.); E. coli ETEC Not Detected (Not Detect.); E. coli STEC Not Detected (Not Detect.); Entamoeba histolytica Not Detected (Not Detect.); Giardia lamblia Not Detected (Not Detect.); Plesiomonas shigelloides Not Detected (Not Detect.); Rotavirus A Not Detected (Not Detect.); Salmonella Not Detected (Not Detect.); Sapovirus Not Detected (Not Detect.); Shigella sp./EIEC Not Detected (Not Detect.); Vibrio Not Detected (Not Detect.); Vibrio Cholerae Not Detected (Not Detect.); Yersinia enterocolitica Not Detected (Not Detect.)
[2025-03-29 09:48] LABS: Norovirus GI/GII Detected (Not Detect.)
--- NOTE | 2025-03-29 11:56 | P.PNIM_ITS ---
Subjective Subjective Date of Service: 03/29/25 Interval History: Follow up colitis and ETOH Better today still with some anxiety Review of Systems Has some nausea, abdominal pain somewhat improving No vomiting Review of Systems: Yes all other systems are reviewed and are negative Physical Exam 2 Vital Signs: Vital Signs: Last Vital Signs Temp 99.9 F 03/29/25 07:36 Pulse 95 03/29/25 07:36 Resp 16 03/29/25 07:36 BP 137/93 H 03/29/25 07:36 Pulse Ox 95 03/29/25 07:36 O2 Del Method Room Air 03/29/25 07:36 BMI result Body Mass Index 22.5 Appearing in no acute distress heart regular rate rhythm, clear S1, S2 LSCTA positive bowel sounds, abdomen is soft, nontender neuro patient is alert x3, no focal deficits Objective Data Active Medications Acetaminophen (Acetaminophen 325 Mg Tablet) 975 mg PO Q6H PRN PRN Reason: Pain, Mild 1-3,fever,headache Last Admin: 03/28/25 17:37 Dose: 975 mg Documented By: INDERJIT Calcium Carbonate (Calcium Carbonate 750 Mg Tab.Chew) 750 mg PO Q4H PRN PRN Reason: Heartburn Ceftriaxone Sodium (Ceftriaxone Sodium 1 Gm Vial) 1 gm IVPUSH Q24H [facility] Last Admin: 03/29/25 01:12 Dose: 1 gm Documented By: SHRADDHA Folic Acid (Folic Acid 1 Mg Tablet) 1 mg PO DAILY [facility] Stop: 03/31/25 08:59 Last Admin: 03/29/25 07:45 Dose: 1 mg Documented By: HEATHER Metronidazole (Flagyl) 500 mg in 100 mls @ 100 mls/hr IV Q8H [facility] Last Infusion: 03/29/25 08:51 Dose: Infused Documented By: HEATHER Potassium Chloride (Potassium Chloride/H20) 10 meq in 100 mls @ 100 mls/hr IV Q1H [facility] Stop: 03/29/25 13:59 Magnesium Hydroxide (Milk Of Magnesia 30 Ml Oral.Susp) 30 ml PO DAILY PRN PRN Reason: Constipation Melatonin (Melatonin 3 Mg Tablet) 6 mg PO BEDTIME PRN PRN Reason: Insomnia Morphine Sulfate (Morphine Sulfate 2 Mg/Ml Cartridge) 2 mg IVPUSH Q4H PRN; Protocol PRN Reason: Pain, Severe (Pain Scale 7-10) Multivitamins/Vitamin C (Multivitamin Tablet) 1 tab PO DAILY [facility] Stop: 03/31/25 08:59 Last Admin: 03/29/25 07:45 Dose: 1 tab Documented By: HEATHER Multivitamins/Vitamin C (Multivitamin Tablet) 1 tab PO DAILY [facility] Last Admin: 03/29/25 07:49 Dose: Not Given Documented By: HEATHER Non-Admin Reason: duplicate Nicotine (Nicotine 21 Mg Patch.Td24) 21 mg TRANSDERMA DAILY [facility] Last Admin: 03/29/25 07:46 Dose: 21 mg Documented By: HEATHER Oxycodone HCl (Oxycodone Hcl Immed Release 5 Mg Tablet) 5 mg PO Q6H PRN PRN Reason: Pain, Moderate(Pain Scale 4-6) Last Admin: 03/29/25 07:45 Dose: 5 mg Documented By: HEATHER Pantoprazole Sodium (Pantoprazole Sodium 40 Mg/10 Ml Vial) 40 mg IVPUSH DAILY@0630 [facility] Last Admin: 03/29/25 06:07 Dose: 40 mg Documented By: SHRADDHA Pharmacy Consult (Consult Rx Etoh Phenob Im/Po) 1 each MISCELLANE ONCE PRN; Protocol PRN Reason: Consult order Phenobarbital (Phenobarbital 15 Mg Tablet) 45 mg PO BID [facility] Stop: 03/29/25 21:01 Last Admin: 03/29/25 07:45 Dose: 45 mg Documented By: HEATHER Phenobarbital (Phenobarbital 30 Mg Tablet) 30 mg PO BID [facility] Stop: 03/31/25 21:01 Phenobarbital (Phenobarbital 15 Mg Tablet) 15 mg PO DAILY [facility] Stop: 04/02/25 09:01 Potassium Chloride (Potassium Chloride Er 20 Meq Tab.Er.Prt) 40 meq PO BID [facility] Sodium Chloride (0.9 % Sodium Chloride Flush 3 Ml Syringe) 3 ml IVFLUSH QSHIFT [facility] Last Admin: 03/29/25 07:46 Dose: 3 ml Documented By: HEATHER Thiamine HCl (Thiamine Hcl 100 Mg Tablet) 100 mg PO DAILY [facility] Stop: 03/31/25 08:59 Last Admin: 03/29/25 07:45 Dose: 100 mg Documented By: HEATHER Labs 03/29/25 06:10 03/29/25 06:10 Labs: Laboratory Results - last 24 hr 03/28/25 03/29/25 15:37 06:10 MCV 111.3 H MCH 39.9 H MCHC 35.9 H RDW 14.6 Plt Count 256 MPV 9.2 L Immature Gran % (Auto) 0.6 H Neut % (Auto) 68.3 Lymph % (Auto) 21.6 [place] % (Auto) 7.3 Eos % (Auto) 1.1 Baso % (Auto) 1.1 Lymph # (Auto) 1.5 [place] # (Auto) 0.5 Eos # (Auto) 0.1 Baso # (Auto) 0.1 Abs Immat Gran (auto) 0.04 H Absolute Neuts (auto) 4.8 Absolute Nucleated RBC 0.000 Nucleated RBC % (auto) 0.0 Smear Path Review SEE NOTE Anion Gap 10 L Estim Creat Clear Calc 148.9 Estimated GFR > 60 Random Glucose 88 Calcium 7.4 L Magnesium 1.7 Stl C. cayetanensis PCR Not Detected Stool Rotavirus A PCR Not Detected Stl Adenov F 40/41 PCR Not Detected Stool Astrovirus (PCR) Not Detected Stool Campylobacter PCR Not Detected Stool Cryptosporidium PCR Not Detected Stl Sh Tox Pr E STEC PCR Not Detected Stool E coli O157 PCR Not applicable Stl Enterotoxigenic E PCR Not Detected Stool EPEC (PCR) Not Detected Stool EAEC (PCR) Not Detected Stl E. histolytica PCR Not Detected Stool Giardia Lamblia PCR Not Detected Stl P. shigelloides PCR Not Detected Stool Salmonella PCR Not Detected Stool Sapovirus (PCR) Not Detected Stl Shigella/EIEC PCR Not Detected St Y.enterocolitica PCR Not Detected Stool Vibrio (PCR) Not Detected Stl Vibrio cholerae PCR Not Detected Stl Norovirus GI/GII PCR Detected A Microbiology Microbiology Results: Microbiology 03/27/25 17:39 Urine Culture - Preliminary Urine clean catch - Clean Catch Midstream Gram negative patel 03/28/25 01:56 Blood Culture - Preliminary Blood - Venous No growth after 24 hours. 03/28/25 02:02 Blood Culture - Preliminary Blood - Venous No growth after 24 hours. Assessment and Plan (1) Acute UTI: Status: Acute (2) Prolonged QT interval: Status: Acute Plan 40 year old female with a pmhx significant for etoh use disorder and colitis, who presented to the ED due to nausea, vomiting, diarrhea, and chest discomfort x2 days. Colitis secondary to norovirus CT with circumferential wall thickening of cecum and part of ascending colon suggestive of colitis Seen by GI Continue IV antibiotics PPI for gastritis. Acute hypokalemia and hypomagnesemia Likely secondary to GI losses Given IV and p.o. replacements Prolonged QT due to lyte abnormalities avoid QT prolonging agents for now GNR UTI Continue Rocephin Alcohol use disorder monitor CIWA phenobarb protocol folic acid, MVI and thiamine daily addicion med consult full code VTE prophy pneumoboots Quality Stroke Does the patient have a stroke diagnosis?: No VTE Prior VTE?: No VTE Risk Level:: Medical - moderate - high VTE Device Contraindication: N/A - Device Ordered VTE Drug Contraindication: Treatment Not Indicated
[2025-03-29] MEDS: Potassium Chloride ER 20 MEQ TAB.ER.PRT 40 MEQ PO ×2 (12:16→20:45)
[2025-03-29] MEDS: Potassium Chloride/H20 10 MEQ/100 ML PIGGYBACK 100 MEQ IV ×2 (12:20→13:55)
[2025-03-29] MEDS: Acetaminophen 325 MG TABLET 975 MG PO (12:23)
[2025-03-29 15:15] VITALS: BP 141/83; PULSE 88; RESP 18; TEMP 36.8; O2SAT 98
[2025-03-29] MEDS: ondansetron HCL 4 MG/2 ML VIAL IVPUSH (15:18)
--- NOTE | 2025-03-29 15:22 | HO.ADDICTCON ---
History of Present Illness Date of Service: 03/29/2025 Chief Complaint: Alcohol withdrwal Reason for Consult: AUD Sources of Information: patient interviewed and chart reviewed HPI Narrative: Patient is a 40 year old female with AUD, medically admitted with colitis and electrolyte abnormalities. Seen by sustainability project coordinator on 02/26 and expressed interest in medications for AUD--full substance use and treatment history reviewed from RN note Patient seen in room 373, she is awake, alert. Laying on her side with an ice pack on her neck--reporting significant nausea that she feels is from PRN oxycodone patient requesting t/w return at a later time as she can not focus due to nausea. CIWA scores [address] no withdrawal sx reported or noted during brief visit Review of Systems Constitutional: Reports as per HPI Diagnostics Vital Signs (24Hr): Vital Signs - 24 hr 03/28/25 19:17 03/29/25 03:17 03/29/25 07:36 Temperature 98.7 F 99.4 F 99.9 F Pulse Rate 99 97 95 Respiratory Rate 18 20 16 Blood Pressure 112/61 141/94 H 137/93 H Pulse Oximetry 97 97 95 Oxygen Delivery Method Room Air Room Air Room Air 03/29/25 15:15 Temperature 98.3 F Pulse Rate 88 Respiratory Rate 18 Blood Pressure 141/83 H Pulse Oximetry 98 Oxygen Delivery Method Room Air BMI result Body Mass Index 22.5 Labs 03/29/25 06:10 03/29/25 06:10 Labs: Laboratory Results - last 48 hr 03/27/25 03/27/25 03/28/25 15:06 17:39 01:56 WBC RBC Hgb Hct MCV MCH MCHC RDW Plt Count MPV Immature Gran % (Auto) Neut % (Auto) Lymph % (Auto) [place] % (Auto) Eos % (Auto) Baso % (Auto) Lymph # (Auto) [place] # (Auto) Eos # (Auto) Baso # (Auto) Abs Immat Gran (auto) Absolute Neuts (auto) Absolute Nucleated RBC Nucleated RBC % (auto) Smear Path Review Sodium 136 139 Potassium 2.4 L* 2.2 L* Chloride 92 L 97 Carbon Dioxide 28 31 H Anion Gap 18 13 BUN 4 L 4 L Creatinine 0.58 0.49 L Estim Creat Clear Calc 120.7 142.8 Estimated GFR > 60 > 60 Random Glucose 145 H 99 Lactic Acid 1.3 Calcium 7.8 L 7.2 L D Magnesium 0.9 L* 1.5 L Total Bilirubin 1.9 H AST 95 H ALT 41 H Alkaline Phosphatase 103 Troponin I High Sens 12.9 Total Protein 6.2 L Albumin 3.4 L Lipase 17 Beta HCG, Quant < 2 Urine Color Yellow Urine Appearance Cloudy Urine pH 7.5 Ur Specific [place] 1.015 Urine Protein Negative Urine Glucose (UA) Negative Urine Ketones Negative Urine Blood Negative Urine Nitrite Negative Ur Leukocyte Esterase Small (1+) H Urine RBC 0-2 Urine WBC 11-20 H Ur Squamous Epith Cells 11-20 Urine Bacteria 4+ Hyaline Casts 0-2 Stl C. cayetanensis PCR Stool Rotavirus A PCR Stl Adenov F PCR Stool Astrovirus (PCR) Stool Campylobacter PCR Stool Cryptosporidium PCR Stl Sh Tox Pr E STEC PCR Stool E coli O157 PCR Stl Enterotoxigenic E PCR Stool EPEC (PCR) Stool EAEC (PCR) Stl E. histolytica PCR Stool Giardia Lamblia PCR Stl P. shigelloides PCR Stool Salmonella PCR Stool Sapovirus (PCR) Stl Shigella/EIEC PCR St Y.enterocolitica PCR Stool Vibrio (PCR) Stl Vibrio cholerae PCR Stl Norovirus GI/GII PCR Ethyl Alcohol 54 Influenza Type A (PCR) NEGATIVE Influenza Type B (PCR) NEGATIVE RSV RNA Qual (PCR) NEGATIVE SARS-CoV-2 RNA (RT-PCR) NEGATIVE 03/28/25 03/28/25 03/28/25 04:43 14:57 15:37 WBC 7.1 RBC 2.47 L Hgb 10.1 L Hct 27.4 L MCV 110.9 H MCH 40.9 H MCHC 36.9 H RDW 15.9 Plt Count 261 MPV 9.1 L Immature Gran % (Auto) 0.3 Neut % (Auto) 68.7 Lymph % (Auto) 24.3 [place] % (Auto) 5.6 Eos % (Auto) 0.3 Baso % (Auto) 0.8 Lymph # (Auto) 1.7 [place] # (Auto) 0.4 Eos # (Auto) 0.0 Baso # (Auto) 0.1 Abs Immat Gran (auto) 0.02 Absolute Neuts (auto) 4.9 Absolute Nucleated RBC 0.000 Nucleated RBC % (auto) 0.0 Smear Path Review Sodium 138 Potassium 2.9 L* D 4.3 D Chloride 98 Carbon Dioxide 30 H Anion Gap 13 BUN 3 L Creatinine 0.47 L Estim Creat Clear Calc 148.9 Estimated GFR > 60 Random Glucose 98 Lactic Acid Calcium 7.0 L Magnesium 2.6 Total Bilirubin AST ALT Alkaline Phosphatase Troponin I High Sens Total Protein Albumin Lipase Beta HCG, Quant Urine Color Urine Appearance Urine pH Ur Specific [place] Urine Protein Urine Glucose (UA) Urine Ketones Urine Blood Urine Nitrite Ur Leukocyte Esterase Urine RBC Urine WBC Ur Squamous Epith Cells Urine Bacteria Hyaline Casts Stl C. cayetanensis PCR Not Detected Stool Rotavirus A PCR Not Detected Stl Adenov F 40/41 PCR Not Detected Stool Astrovirus (PCR) Not Detected Stool Campylobacter PCR Not Detected Stool Cryptosporidium PCR Not Detected Stl Sh Tox Pr E STEC PCR Not Detected Stool E coli O157 PCR Not applicable Stl Enterotoxigenic E PCR Not Detected Stool EPEC (PCR) Not Detected Stool EAEC (PCR) Not Detected Stl E. histolytica PCR Not Detected Stool Giardia Lamblia PCR Not Detected Stl P. shigelloides PCR Not Detected Stool Salmonella PCR Not Detected Stool Sapovirus (PCR) Not Detected Stl Shigella/EIEC PCR Not Detected St Y.enterocolitica PCR Not Detected Stool Vibrio (PCR) Not Detected Stl Vibrio cholerae PCR Not Detected Stl Norovirus GI/GII PCR Detected A Ethyl Alcohol Influenza Type A (PCR) Influenza Type B (PCR) RSV RNA Qual (PCR) SARS-CoV-2 RNA (RT-PCR) 03/29/25 06:10 WBC 7.0 RBC 2.48 L Hgb 9.9 L Hct 27.6 L MCV 111.3 H MCH 39.9 H MCHC 35.9 H RDW 14.6 Plt Count 256 MPV 9.2 L Immature Gran % (Auto) 0.6 H Neut % (Auto) 68.3 Lymph % (Auto) 21.6 [place] % (Auto) 7.3 Eos % (Auto) 1.1 Baso % (Auto) 1.1 Lymph # (Auto) 1.5 [place] # (Auto) 0.5 Eos # (Auto) 0.1 Baso # (Auto) 0.1 Abs Immat Gran (auto) 0.04 H Absolute Neuts (auto) 4.8 Absolute Nucleated RBC 0.000 Nucleated RBC % (auto) 0.0 Smear Path Review SEE NOTE Sodium 133 L Potassium 2.9 L* D Chloride 100 Carbon Dioxide 26 Anion Gap 10 L BUN < 3 L Creatinine 0.47 L Estim Creat Clear Calc 148.9 Estimated GFR > 60 Random Glucose 88 Lactic Acid Calcium 7.4 L Magnesium 1.7 Total Bilirubin AST ALT Alkaline Phosphatase Troponin I High Sens Total Protein Albumin Lipase Beta HCG, Quant Urine Color Urine Appearance Urine pH Ur Specific [place] Urine Protein Urine Glucose (UA) Urine Ketones Urine Blood Urine Nitrite Ur Leukocyte Esterase Urine RBC Urine WBC Ur Squamous Epith Cells Urine Bacteria Hyaline Casts Stl C. cayetanensis PCR Stool Rotavirus A PCR Stl Adenov F PCR Stool Astrovirus (PCR) Stool Campylobacter PCR Stool Cryptosporidium PCR Stl Sh Tox Pr E STEC PCR Stool E coli O157 PCR Stl Enterotoxigenic E PCR Stool EPEC (PCR) Stool EAEC (PCR) Stl E. histolytica PCR Stool Giardia Lamblia PCR Stl P. shigelloides PCR Stool Salmonella PCR Stool Sapovirus (PCR) Stl Shigella/EIEC PCR St Y.enterocolitica PCR Stool Vibrio (PCR) Stl Vibrio cholerae PCR Stl Norovirus GI/GII PCR Ethyl Alcohol Influenza Type A (PCR) Influenza Type B (PCR) RSV RNA Qual (PCR) SARS-CoV-2 RNA (RT-PCR) Mental Status Exam Mental Status Exam Patient Appearance: Appropriate Level of Consciousness: Awake, Appropriate and Alert Patient Behavior: Appropriate Affect Description: Appropriate Speech Pattern: Clear Thought Process: Intact Thought Content: positive for Intact Judgement: Good Medications Medications Current Medications Acetaminophen (Acetaminophen 325 Mg Tablet) 975 mg PO Q6H PRN PRN Reason: Pain, Mild 1-3,fever,headache Last Admin: 03/29/25 12:23 Dose: 975 mg Calcium Carbonate (Calcium Carbonate 750 Mg Tab.Chew) 750 mg PO Q4H PRN PRN Reason: Heartburn Ceftriaxone Sodium (Ceftriaxone Sodium 1 Gm Vial) 1 gm IVPUSH Q24H [facility] Last Admin: 03/29/25 01:12 Dose: 1 gm Folic Acid (Folic Acid 1 Mg Tablet) 1 mg PO DAILY [facility] Stop: 03/31/25 08:59 Last Admin: 03/29/25 07:45 Dose: 1 mg Metronidazole (Flagyl) 500 mg in 100 mls @ 100 mls/hr IV Q8H [facility] Last Infusion: 03/29/25 08:51 Dose: Infused Magnesium Hydroxide (Milk Of Magnesia 30 Ml Oral.Susp) 30 ml PO DAILY PRN PRN Reason: Constipation Melatonin (Melatonin 3 Mg Tablet) 6 mg PO BEDTIME PRN PRN Reason: Insomnia Morphine Sulfate (Morphine Sulfate 2 Mg/Ml Cartridge) 2 mg IVPUSH Q4H PRN; Protocol PRN Reason: Pain, Severe (Pain Scale 7-10) Multivitamins/Vitamin C (Multivitamin Tablet) 1 tab PO DAILY [facility] Stop: 03/31/25 08:59 Last Admin: 03/29/25 07:45 Dose: 1 tab Multivitamins/Vitamin C (Multivitamin Tablet) 1 tab PO DAILY [facility] Last Admin: 03/29/25 07:49 Dose: Not Given Nicotine (Nicotine 21 Mg Patch.Td24) 21 mg TRANSDERMA DAILY [facility] Last Admin: 03/29/25 07:46 Dose: 21 mg Ondansetron HCl (Ondansetron Hcl 4 Mg/2 Ml Vial) 4 mg IVPUSH Q8H PRN PRN Reason: Nausea and Vomiting Last Admin: 03/29/25 15:18 Dose: 4 mg Oxycodone HCl (Oxycodone Hcl Immed Release 5 Mg Tablet) 5 mg PO Q6H PRN PRN Reason: Pain, Moderate(Pain Scale 4-6) Last Admin: 03/29/25 07:45 Dose: 5 mg Pantoprazole Sodium (Pantoprazole Sodium 40 Mg/10 Ml Vial) 40 mg IVPUSH DAILY@0630 [facility] Last Admin: 03/29/25 06:07 Dose: 40 mg Pharmacy Consult (Consult Rx Etoh Phenob Im/Po) 1 each MISCELLANE ONCE PRN; Protocol PRN Reason: Consult order Phenobarbital (Phenobarbital 15 Mg Tablet) 45 mg PO BID [facility] Stop: 03/29/25 21:01 Last Admin: 03/29/25 07:45 Dose: 45 mg Phenobarbital (Phenobarbital 30 Mg Tablet) 30 mg PO BID [facility] Stop: 03/31/25 21:01 Phenobarbital (Phenobarbital 15 Mg Tablet) 15 mg PO DAILY [facility] Stop: 04/02/25 09:01 Potassium Chloride (Potassium Chloride Er 20 Meq Tab.Er.Prt) 40 meq PO BID [facility] Last Admin: 03/29/25 12:16 Dose: 40 meq Sodium Chloride (0.9 % Sodium Chloride Flush 3 Ml Syringe) 3 ml IVFLUSH QSHIFT [facility] Last Admin: 03/29/25 13:58 Dose: 3 ml Thiamine HCl (Thiamine Hcl 100 Mg Tablet) 100 mg PO DAILY [facility] Stop: 03/31/25 08:59 Last Admin: 03/29/25 07:45 Dose: 100 mg Allergies Allergies Allergy/AdvReac Type Severity Reaction Status Date / Time latex Allergy Rash Verified 03/27/25 14:54 Assessment & Plan Assessment & Plan (1) Alcohol use disorder: Status: Acute Code(s): F10.90 - Alcohol use, unspecified, uncomplicated Assessment and Plan: will return in AM to follow up on NATASHA Total time managing care of this patient today __15__ minutes. [facility] Past Medical History Medical History (Updated 03/28/25 @ 03:46 by Amilcar Norton) Alcohol use disorder Colitis Social History Social History Household Members: Family and Children Housing: Apartment Do you presently have visiting nurse or other home services: No Alcohol intake: current Alcohol intake frequency: 0-2 drinks per day Alcohol type: hard liquor Patient Tobacco Use Status: Current everyday Tobacco user Tobacco use type: Cigarette Cigarette Packs Per Day: 1 Cigarettes Per Day: 20.0 Years Smoked: 20 e-Cigarette/Vaping Use: Never Used Second Hand Smoke Exposure: No
[2025-03-29 19:13] VITALS: BP 121/83; PULSE 92; RESP 18; TEMP 36.9; O2SAT 98
[2025-03-30] MEDS: 0.9 % Sodium Chloride Flush 3 ML SYRINGE IVFLUSH ×2 (01:25→08:20)
[2025-03-30] MEDS: cefTRIAXone sodium 1 GM VIAL IVPUSH (01:25)
[2025-03-30] MEDS: metroNIDAZOLE/NS 500 MG/100 ML PIGGYBACK 100 MG IV ×2 (01:34→08:16)
[2025-03-30] MEDS: Acetaminophen 325 MG TABLET 975 MG PO (01:58)
[2025-03-30 03:17] VITALS: BP 122/83; PULSE 94; RESP 20; TEMP 36.7; O2SAT 97
[2025-03-30 05:52] LABS: MANUAL DIFF FLAG NO
[2025-03-30 05:55] LABS: Basophils Absolute Auto 0.1 X10*3/uL (0.0-0.2); Eosinophils Absolute Auto 0.1 X10*3/uL (0.0-0.4); Hematocrit 28.4 % (37.0-47.0); Hemoglobin 10.2 g/dl (12.0-16.0); Imm Gran Abs Auto 0.06 X10*3/uL (0.00-0.03); Imm Gran Pct Auto 0.8 % (0.0-0.4); Lymphocytes Absolute Auto 1.5 X10*3/uL (1.2-4.9); Lymphocytes Percent Auto 21.1 % (20-40); Mean Corpuscular HGB Conc 35.9 g/dl (31.0-35.0); Mean Corpuscular Hemoglobin 40.3 pg (27.0-33.0); Mean Platelet Volume 9.1 fL (9.4-12.3); Monocytes Absolute Auto 0.6 X10*3/uL (0.1-1.2); Monocytes Percent Auto 8.6 % (2-11); Neutrophils Absolute Auto 4.8 x10*3/uL (2.0-8.3); Neutrophils Percent Auto 67.5 % (45-73); Platelet Count 260 X10*3/uL (160-400); Red Blood Count 2.53 X10*6/uL (4.20-5.50); Red Cell Distribution Width 15.2 % (11.0-16.0); White Blood Count 7.2 X10*3/uL (4.8-10.8)
[2025-03-30] MEDS: Pantoprazole Sodium 40 MG/10 ML VIAL IVPUSH (05:58)
[2025-03-30 05:59] LABS: Mean Corpuscular Volume 112.3 fL (80.0-98.0)
[2025-03-30 06:17] LABS: Anion Gap 11 (12-20); Blood Urea Nitrogen 4 mg/dL (9-16); Calcium 7.6 mg/dL (8.4-10.2); Carbon Dioxide 24 mmol/L (22-29); Chloride 105 mmol/L (96-108); Creatinine Clr Calc Pharmacy 155.6; Estimated Glomerular Filt Rate > 60; Glucose Random 98 mg/dL (60-115); Magnesium 1.6 mg/dL (1.6-2.6); Potassium 3.8 mmol/L (3.3-5.1); Sodium 136 mmol/L (135-145)
[2025-03-30 07:32] VITALS: BP 138/82; PULSE 88; RESP 16; TEMP 37.1; O2SAT 95
[2025-03-30] MEDS: Potassium Chloride ER 20 MEQ TAB.ER.PRT 40 MEQ PO (08:17)
[2025-03-30] MEDS: Thiamine HCL 100 MG TABLET PO (08:17)
[2025-03-30] MEDS: Folic Acid 1 MG TABLET PO (08:17)
[2025-03-30] MEDS: Magnesium Oxide 400 MG TABLET PO (08:17)
[2025-03-30] MEDS: Multivitamin TABLET 1 TAB PO (08:17)
[2025-03-30] MEDS: PHENobarbitaL 30 MG TABLET PO (08:17)
[2025-03-30] MEDS: Nicotine 21 MG PATCH.TD24 TRANSDERMA (08:17)
--- NOTE | 2025-03-30 09:55 | PM.DS ---
DS: Providers Provider Date of Service: 03/30/25 Date of admission: 03/27/25 21:05 Date of discharge: 03/30/25 Primary care physician: Unknown Physician Consults: 03/28/25 00:50 Addiction Medicine Provider Routine Consulting Provider: Addiction Covering Reason for consultation: etoh abuse Has provider been notified: No 03/28/25 00:51 Consult to Gastroenterology Routine Consulting Provider: Jesus Caraballo Reason for consultation: recurrent colitis DS: Diagnosis Discharge Diagnosis (1) Alcohol use disorder: Status: Acute DS: Summary Hospital Course Hospital Course: History and physical as per admitting provider. Pt is a 40 yo female with a pmhx significant for etoh use disorder and colitis, who presented to the ED due to nausea, vomiting, diarrhea, and chest discomfort x2 days. She reports that she has been having severe nausea and vomiting and has not been able to eat for days. She has been having nonbloody diarrhea and denies hematemesis, and states this similar to a previous episode of colitis. she has not seen a cdl program coordinator for this, but no fhx of IBD. she is having mild LUQ and epigastic pain, most of her pain is in her low back. she does complain of decreaed urianry output but denies dysuria or urgency. she used to drink 12+nips/day, and has cut back to about 8/day, and reports over the past few days she has not been drinking much at all due to her sx. her sx are not caused by her cutting back on etoh. currently her nausea is controlled. Colitis secondary to norovirus. CT with circumferential wall thickening of cecum and part of ascending colon suggestive of colitis. Seen by GI and treated with IV antibiotics. PPI for gastritis. Acute hypokalemia and hypomagnesemia. Likely secondary to GI losses, Given IV and p.o. replacements Prolonged QT. due to lyte abnormalities. avoid QT prolonging agents for now Ecoli UTI. Continue Rocephin Alcohol use disorder. CIWA. treated with phenobarb protocol. folic acid, MVI and thiamine daily. Seen by addiction medicine Time Attestation Discharge Coordination Time (in mins): 40 Quality: Safe Use of Opioids Does Pt have an Active Cancer Diagnosis on the Problem List?: No Quality: Stroke Does the patient have a stroke diagnosis?: No Physical Exam Vital Signs: Vital Signs: Last Vital Signs Temp 98.8 F 03/30/25 07:32 Pulse 88 03/30/25 07:32 Resp 16 03/30/25 07:32 BP 138/82 03/30/25 07:32 Pulse Ox 95 03/30/25 07:32 O2 Del Method Room Air 03/30/25 07:32 BMI result Body Mass Index 22.5 Appearing in no acute distress head is normocephalic atraumatic eyes pupils are PERRLA sclera is anicteric mouth throat mucous membranes are intact and moist neck is supple no lymphadenopathy, no JVD noted lung sounds are clear to auscultation heart regular rate rhythm, clear S1, S2 positive bowel sounds, abdomen is soft, nontender neuro patient is alert x3, no focal deficits DS: Data Data Completed and Pending Labs on day of discharge: Laboratory Results - last 24 hr 03/30/25 05:25 WBC 7.2 RBC 2.53 L Hgb 10.2 L Hct 28.4 L MCV 112.3 H MCH 40.3 H MCHC 35.9 H RDW 15.2 Plt Count 260 MPV 9.1 L Immature Gran % (Auto) 0.8 H Neut % (Auto) 67.5 Lymph % (Auto) 21.1 [place] % (Auto) 8.6 Eos % (Auto) 1.0 Baso % (Auto) 1.0 Lymph # (Auto) 1.5 [place] # (Auto) 0.6 Eos # (Auto) 0.1 Baso # (Auto) 0.1 Abs Immat Gran (auto) 0.06 H Absolute Neuts (auto) 4.8 Absolute Nucleated RBC 0.000 Nucleated RBC % (auto) 0.0 Sodium 136 Potassium 3.8 D Chloride 105 Carbon Dioxide 24 Anion Gap 11 L BUN 4 L Creatinine 0.45 L Estim Creat Clear Calc 155.6 Estimated GFR > 60 Random Glucose 98 Calcium 7.6 L Magnesium 1.6 Preliminary micro results at discharge 03/28/25 01:56 Blood Culture - Preliminary Blood - Venous No growth after 48 hours. 03/28/25 02:02 Blood Culture - Preliminary Blood - Venous No growth after 48 hours. Discharge Plan Discharge Anticipated Discharge Date/Time: 03/30/25 09:49 Patient Disposition: Home, Self-Care Discharge Diagnosis: Colitis Norovirus Acute hypokalemia Acute hypomagnesemia E coli UTI Referrals: [facility] [Provider Group] - 04/13/25 2:45 pm (Please go to your appointment at the [facility] on Sunday April 13, 2025 at 2:45pm for your intake. ) Discharge Medications: New potassium chloride 20 mEq Tablet,Er Particles/Crystals 40 meq PO BID Qty: 12 0RF magnesium oxide 400 mg (241.3 mg magnesium) Tablet 400 mg PO BIDPC Qty: 8 0RF cefuroxime axetil 500 mg tablet 500 mg PO Q12H Qty: 8 0RF naltrexone 50 mg tablet 50 mg PO DAILY Qty: 30 0RF Rx Instructions: take 1/2 tab daily for one week, then increase to one tab daily Continued Women's One Daily 18 mg iron-400 mcg-500 mg Tablet 1 tab PO DAILY Discharge Orders: Discharge Order (Routine); Ordered 03/30/25 Ordered By: Loren Ruiz Diet: Advance to usual diet Activity on Discharge: As tolerated Stand Alone Forms: Patient Portal Discharge page, Community Support Print Language: Mongolian Care Plan Goals: ? Frequently wash your hands (vigorously, with soap and warm water), especially after toilet visits and changing diapers and before eating or preparing food. ? Carefully wash fruits and vegetables, and thoroughly cook shellfish (the virus is killed above 60?C /140?F, freezing does not kill it) ? Thoroughly clean and disinfect contaminated surfaces immediately after an episode of illness by using a bleach-based household glass mould cleaner. ? Immediately remove and wash clothing or linens that may be contaminated with virus after an episode of illness (use hot water and soap). ? Flush or discard any vomit and/or stool in the toilet (with the lid down) and make sure that the surrounding area is kept clean. ? Persons who are infected with norovirus should not prepare food while they have symptoms and for 3 days after they recover from their illness. ? Food that may have been contaminated by an ill person should be disposed of properly Health Concerns: Colitis Norovirus Acute hypokalemia Acute hypomagnesemia E coli UTI Plan of Treatment: Follow up with primary care provider as needed Take all medications as prescribed Assessment: See discharge summary Patient Instructions: Foodborne Illness (DC) Discharge Date/Time: 03/30/25 13:36
[2025-03-30] MEDS: Loperamide HCl 2 MG CAPSULE 4 MG PO (10:12)
--- NOTE | 2025-03-30 10:13 | HO.ADDICTPRO ---
Subjective Subjective Date of Service: 03/30/25 Reason For Visit: Alcohol withdrwal Interim History: Patient seen in follow up for AUD Awake, alert, feeling much better than yesterday Discharging today --labs much improved No withdrawal sx Would like to start Naltrexone--reviewed information provided to her by pharmacy services representative, does not have any questions at this time Reviewed dosing, side effects, and continuation of treatment--would like a referral to [facility] Review of Systems Constitutional: Reports as per HPI, Denies body ache(s), Denies chills and Denies malaise Gastrointestinal: Denies loose stools and Denies nausea Psychiatric: Reports anxiety Mental Status Exam Mental Status Exam Patient Appearance: Appropriate Level of Consciousness: Awake, Appropriate and Alert Patient Behavior: Appropriate and Cooperative Affect Description: Appropriate and Anxious Speech Pattern: Clear Hallucinations: None Thought Process: Intact Judgement: Good Diagnostics Vital Signs (24Hr): Vital Signs - 24 hr 03/29/25 15:15 03/29/25 19:13 03/30/25 03:17 Temperature 98.3 F 98.4 F 98.1 F Pulse Rate 88 92 94 Respiratory Rate 18 18 20 Blood Pressure 141/83 H 121/83 122/83 Pulse Oximetry 98 98 97 Oxygen Delivery Method Room Air Room Air Room Air 03/30/25 07:32 Temperature 98.8 F Pulse Rate 88 Respiratory Rate 16 Blood Pressure 138/82 Pulse Oximetry 95 Oxygen Delivery Method Room Air BMI result Body Mass Index 22.5 Labs 03/30/25 05:25 03/30/25 05:25 Labs: Laboratory Results - last 48 hr 03/28/25 03/28/25 03/29/25 14:57 15:37 06:10 WBC 7.0 RBC 2.48 L Hgb 9.9 L Hct 27.6 L MCV 111.3 H MCH 39.9 H MCHC 35.9 H RDW 14.6 Plt Count 256 MPV 9.2 L Immature Gran % (Auto) 0.6 H Neut % (Auto) 68.3 Lymph % (Auto) 21.6 Waldo % (Auto) 7.3 Eos % (Auto) 1.1 Baso % (Auto) 1.1 Lymph # (Auto) 1.5 Waldo # (Auto) 0.5 Eos # (Auto) 0.1 Baso # (Auto) 0.1 Abs Immat Gran (auto) 0.04 H Absolute Neuts (auto) 4.8 Absolute Nucleated RBC 0.000 Nucleated RBC % (auto) 0.0 Smear Path Review SEE NOTE Sodium 133 L Potassium 4.3 D 2.9 L* D Chloride 100 Carbon Dioxide 26 Anion Gap 10 L BUN < 3 L Creatinine 0.47 L Estim Creat Clear Calc 148.9 Estimated GFR > 60 Random Glucose 88 Calcium 7.4 L Magnesium 1.7 Stl C. cayetanensis PCR Not Detected Stool Rotavirus A PCR Not Detected Stl Adenov F 40/41 PCR Not Detected Stool Astrovirus (PCR) Not Detected Stool Campylobacter PCR Not Detected Stool Cryptosporidium PCR Not Detected Stl Sh Tox Pr E STEC PCR Not Detected Stool E coli O157 PCR Not applicable Stl Enterotoxigenic E PCR Not Detected Stool EPEC (PCR) Not Detected Stool EAEC (PCR) Not Detected Stl E. histolytica PCR Not Detected Stool Giardia Lamblia PCR Not Detected Stl P. shigelloides PCR Not Detected Stool Salmonella PCR Not Detected Stool Sapovirus (PCR) Not Detected Stl Shigella/EIEC PCR Not Detected St Y.enterocolitica PCR Not Detected Stool Vibrio (PCR) Not Detected Stl Vibrio cholerae PCR Not Detected Stl Norovirus GI/GII PCR Detected A 03/30/25 05:25 WBC 7.2 RBC 2.53 L Hgb 10.2 L Hct 28.4 L MCV 112.3 H MCH 40.3 H MCHC 35.9 H RDW 15.2 Plt Count 260 MPV 9.1 L Immature Gran % (Auto) 0.8 H Neut % (Auto) 67.5 Lymph % (Auto) 21.1 Waldo % (Auto) 8.6 Eos % (Auto) 1.0 Baso % (Auto) 1.0 Lymph # (Auto) 1.5 Waldo # (Auto) 0.6 Eos # (Auto) 0.1 Baso # (Auto) 0.1 Abs Immat Gran (auto) 0.06 H Absolute Neuts (auto) 4.8 Absolute Nucleated RBC 0.000 Nucleated RBC % (auto) 0.0 Smear Path Review Sodium 136 Potassium 3.8 D Chloride 105 Carbon Dioxide 24 Anion Gap 11 L BUN 4 L Creatinine 0.45 L Estim Creat Clear Calc 155.6 Estimated GFR > 60 Random Glucose 98 Calcium 7.6 L Magnesium 1.6 Stl C. cayetanensis PCR Stool Rotavirus A PCR Stl Adenov F 40 PCR Stool Astrovirus (PCR) Stool Campylobacter PCR Stool Cryptosporidium PCR Stl Sh Tox Pr E STEC PCR Stool E coli O157 PCR Stl Enterotoxigenic E PCR Stool EPEC (PCR) Stool EAEC (PCR) Stl E. histolytica PCR Stool Giardia Lamblia PCR Stl P. shigelloides PCR Stool Salmonella PCR Stool Sapovirus (PCR) Stl Shigella/EIEC PCR St Y.enterocolitica PCR Stool Vibrio (PCR) Stl Vibrio cholerae PCR Stl Norovirus GI/GII PCR Medications Medications Current Medications Acetaminophen (Acetaminophen 325 Mg Tablet) 975 mg PO Q6H PRN PRN Reason: Pain, Mild 1-3,fever,headache Last Admin: 03/30/25 01:58 Dose: 975 mg Calcium Carbonate (Calcium Carbonate 750 Mg Tab.Chew) 750 mg PO Q4H PRN PRN Reason: Heartburn Ceftriaxone Sodium (Ceftriaxone Sodium 1 Gm Vial) 1 gm IVPUSH Q24H [facility] Last Admin: 03/30/25 01:25 Dose: 1 gm Folic Acid (Folic Acid 1 Mg Tablet) 1 mg PO DAILY [facility] Stop: 03/31/25 08:59 Last Admin: 03/30/25 08:17 Dose: 1 mg Metronidazole (Flagyl) 500 mg in 100 mls @ 100 mls/hr IV Q8H [facility] Last Infusion: 03/30/25 09:24 Dose: Infused Magnesium Hydroxide (Milk Of Magnesia 30 Ml Oral.Susp) 30 ml PO DAILY PRN PRN Reason: Constipation Magnesium Oxide (Magnesium Oxide 400 Mg Tablet) 400 mg PO BIDPC [facility] Last Admin: 03/30/25 08:17 Dose: 400 mg Melatonin (Melatonin 3 Mg Tablet) 6 mg PO BEDTIME PRN PRN Reason: Insomnia Morphine Sulfate (Morphine Sulfate 2 Mg/Ml Cartridge) 2 mg IVPUSH Q4H PRN; Protocol PRN Reason: Pain, Severe (Pain Scale 7-10) Multivitamins/Vitamin C (Multivitamin Tablet) 1 tab PO DAILY [facility] Stop: 03/31/25 08:59 Last Admin: 03/30/25 08:17 Dose: 1 tab Multivitamins/Vitamin C (Multivitamin Tablet) 1 tab PO DAILY [facility] Last Admin: 03/30/25 08:22 Dose: Not Given Nicotine (Nicotine 21 Mg Patch.Td24) 21 mg TRANSDERMA DAILY [facility] Last Admin: 03/30/25 08:17 Dose: 21 mg Ondansetron HCl (Ondansetron Hcl 4 Mg/2 Ml Vial) 4 mg IVPUSH Q8H PRN PRN Reason: Nausea and Vomiting Last Admin: 03/29/25 15:18 Dose: 4 mg Oxycodone HCl (Oxycodone Hcl Immed Release 5 Mg Tablet) 5 mg PO Q6H PRN PRN Reason: Pain, Moderate(Pain Scale 4-6) Last Admin: 03/29/25 07:45 Dose: 5 mg Pantoprazole Sodium (Pantoprazole Sodium 40 Mg/10 Ml Vial) 40 mg IVPUSH DAILY@0630 [facility] Last Admin: 03/30/25 05:58 Dose: 40 mg Pharmacy Consult (Consult Rx Etoh Phenob Im/Po) 1 each MISCELLANE ONCE PRN; Protocol PRN Reason: Consult order Phenobarbital (Phenobarbital 30 Mg Tablet) 30 mg PO BID [facility] Stop: 03/31/25 21:01 Last Admin: 03/30/25 08:17 Dose: 30 mg Phenobarbital (Phenobarbital 15 Mg Tablet) 15 mg PO DAILY [facility] Stop: 04/02/25 09:01 Potassium Chloride (Potassium Chloride Er 20 Meq Tab.Er.Prt) 40 meq PO BID [facility] Last Admin: 03/30/25 08:17 Dose: 40 meq Sodium Chloride (0.9 % Sodium Chloride Flush 3 Ml Syringe) 3 ml IVFLUSH QSHIFT [facility] Last Admin: 03/30/25 08:20 Dose: 3 ml Thiamine HCl (Thiamine Hcl 100 Mg Tablet) 100 mg PO DAILY [facility] Stop: 03/31/25 08:59 Last Admin: 03/30/25 08:17 Dose: 100 mg Allergies Allergies Allergy/AdvReac Type Severity Reaction Status Date / Time latex Allergy Rash Verified 03/27/25 14:54 Assessment & Plan Assessment & Plan (1) Alcohol use disorder: Status: Acute Code(s): F10.90 - Alcohol use, unspecified, uncomplicated Assessment and Plan: Naltrexone 25mg QD for a week then increase to 50mg QD --rx sent to patients [facility] pharmacy services representative scheduling intake appt with [facility] Total time managing care of this patient today __25__ minutes.
--- NOTE | 2025-03-30 10:46 | MHC.CM.PN ---
DP: PT HAS BEEN MEDICALLY CLEARED FOR DC HOME, NO SERVICES. PT'S FAMILY WILL TRANSPORT
== END 2025-03-30 13:36 | disposition home or self-care (01) | DRG 249 ==
LOC: HO.ED 15:59 → HO.EDOVER 21:09 → HO.S3 03-28 12:39
PROVIDERS: Internal Medicine; Nurse Practitioner Family; Physician Assistant; Physician Assistant Medical; Admitting Provider Student in an Organized Health Care Education/Training Program; Emergency Provider Emergency Medicine Emergency Medical Services; PCP Internal Medicine; Visit Provider Nurse Practitioner Acute Care
DX: A08.11 Acute gastroenteropathy due to Norwalk agent (principal); E83.42 Hypomagnesemia; F17.210 Nicotine dependence, cigarettes, uncomplicated; Z71.6 Tobacco abuse counseling; R94.31 Abnormal electrocardiogram [ECG] [EKG]; Y90.2 Blood alcohol level of 40-59 mg/100 ml; F10.10 Alcohol abuse, uncomplicated; E87.6 Hypokalemia; N39.0 Urinary tract infection, site not specified; B96.20 Unspecified Escherichia coli [E. coli] as the cause of diseases classified elsewhere; Z20.822 Contact with and (suspected) exposure to COVID-19; Z79.899 Other long term (current) drug therapy
CPT/HCPCS: 0241U; 36415; 74177; 80048; 80053; 80307; 81001; 83605; 83690; 83735; 84132; 84484; 84702; 85025; 87040; 87086; 87088; 87186; 87507; 93005; 99285; J0696; J1836; J2405; J2470; J2560; J3475; J3480; J7120; Q9967; S9485

== ENCOUNTER → 2025-03-27 14:48 | Outpatient (BNV) | payer OTHER, SELFPAY | PROVIDERS: Admitting Provider Student in an Organized Health Care Education/Training Program; Emergency Provider Emergency Medicine Emergency Medical Services; Visit Provider Internal Medicine Cardiovascular Disease | DX: R94.31 Abnormal electrocardiogram [ECG] [EKG] (principal); Z13.6 Encounter for screening for cardiovascular disorders; R00.0 Tachycardia, unspecified | CPT/HCPCS: 93010 ==

== ENCOUNTER → 2025-03-27 16:26 | Outpatient (BNV) | payer OTHER, SELFPAY | PROVIDERS: Emergency Provider Emergency Medicine Emergency Medical Services; Visit Provider Specialist | DX: R16.0 Hepatomegaly, not elsewhere classified (principal) | CPT/HCPCS: 74177 ==

== ENCOUNTER → 2025-03-27 21:05 | Outpatient (BNV) | payer OTHER, SELFPAY | PROVIDERS: Admitting Provider Student in an Organized Health Care Education/Training Program; Emergency Provider Emergency Medicine Emergency Medical Services; Visit Provider Physician Assistant | DX: F10.90 Alcohol use, unspecified, uncomplicated (principal) | CPT/HCPCS: 99223; 99232; 99239 ==

== ENCOUNTER → 2025-03-27 21:05 | Outpatient (BNV) | payer OTHER, SELFPAY | PROVIDERS: Admitting Provider Student in an Organized Health Care Education/Training Program; Emergency Provider Emergency Medicine Emergency Medical Services; Visit Provider Nurse Practitioner Psychiatric/Mental Health | DX: F10.90 Alcohol use, unspecified, uncomplicated (principal) | CPT/HCPCS: 99221; 99231 ==